=== PATIENT | male | born 1965 | race Caucasian/White ===

== ENCOUNTER 2016-08-01 07:58 | Day surgery (SDC) | payer BC ==
[~2016-08-01 07:58] MED LIST: Propofol 200 MG/20 ML SDV ONE
[2016-08-01] MEDS ORDERED: Sodium Chloride 0.9% 5 ML Syringe FLUSH PRN (08:00)
[2016-08-01] MEDS ORDERED: Sodium Chloride 0.9% 1,000 ML IV SCH (08:00)
[2016-08-01] MEDS ORDERED: Propofol 200 MG/20 ML SDV ONE (08:37)
[2016-08-01] MEDS ORDERED: Lactated Ringers 1,000 ML ONE (08:51)
[2016-08-01] MEDS ORDERED: Propofol 200 MG/20 ML SDV IV ONE (09:20)
--- NOTE | 2016-08-01 09:26 | PCM.PN ---
- General Info Date of Service: 08/01/16 - Review of Systems Systems Review Comment:: 50 y/o male referred for initial screening colonoscopy. He denies any recent bowel symptoms or family history of colon Ca. He also has a history of esophageal stricture which is becoming increasingly symptomatic. He has had esophageal dilation performed in the past with good results. Advised and patient agrees to having EGD with balloon dilation as well as colonoscopy. He understands indications and risks and he agrees to proceed. - Patient Data Vitals - most recent: Last Vital Signs Temp 97.4 F 08/01/16 08:16 Pulse 75 08/01/16 08:16 Resp 16 08/01/16 08:16 BP 131/78 08/01/16 08:16 Pulse Ox 98 08/01/16 08:16 Weight - most recent: 100.244 kg Lab Results last 24 hrs: Laboratory Results - last 24 hr 08/01/16 Range/Units 08:06 POC Glucose 205 H (74-106) mg/dl Med Orders - Current: Current Medications Sodium Chloride (Normal Saline) 1,000 mls @ 50 mls/hr IV ASDIRECTED ALIYA Sodium Chloride (Syrex Flush) 5 ml FLUSH Q8HR PRN PRN Reason: Keep Vein Open Discontinued Medications Propofol (Diprivan 20 Ml) Confirm Administered Dose 400 mg .ROUTE .STK-MED ONE Stop: 08/01/16 07:34 - Problem List Review Problem List Initiated/Reviewed/Updated: Yes - My Orders Last 24 Hours: My Active Orders 07/31/16 14:56 Resuscitation Status Routine 08/01/16 08:00 Blood Glucose Check, Bedside [RC] ONETIME Patient to Empty Bladder [RC] ASDIRECTED Peripheral IV Care [RC] . DIRECTED Verify Patient Consent Obtain [RC] ASDIRECTED Sodium Chloride 0.9% [Normal Saline] 1,000 ml IV ASDIRECTED Sodium Chloride 0.9% [Syrex Flush] 5 ml FLUSH Q8HR PRN Peripheral IV Insertion Adult [OM.PC] Routine 08/01/16 Breakfast Nothing Per Oral Diet [DIET] - Assessment Assessment:: History of Esophageal stenosis with dysphagia Colon Cancer Screening - Plan Plan:: EGD with balloon dilation and colonoscopy
--- NOTE | 2016-08-01 10:11 | PCM.OPNOTE ---
- General Post-Op/Procedure Note Date of Surgery/Procedure: 08/01/16 Operative Procedure(s): EGD with Balloon Dilation of esophageal stenosis. Colonoscopy with polyp removal Findings: [facility] with moderate stenosis Small rectal polyp Pre Op Diagnosis: Dysphagia with history of esophageal stenosis. Colon Cancer Screening Post-Op Diagnosis: Reflux esophagitis with esophageal stenosis. Rectal Polyp Anesthesia Technique: MAC Primary Surgeon: Eben Urbano Pathology: Rectal Polyp Output, Urine Amount: 0 EBL in mLs: 3 Complications: None Condition: Good
[2016-08-01 11:52] VITALS: BP 126/80
--- NOTE | 2016-08-01 18:47 | PROC ---
PROVIDER: Eben Urbano MD PRE-PROCEDURE DIAGNOSIS: Dysphagia with a history of esophageal stenosis and colon cancer screening. POST-PROCEDURE DIAGNOSIS: Reflux esophagitis with esophageal stenosis and rectal polyp. PROCEDURE PERFORMED: Esophagogastroduodenoscopy with balloon esophageal stenosis dilation and colonoscopy with polypectomy. INDICATIONS FOR SURGERY: This 50-year-old male is referred for his initial screening colonoscopy. He also notes that he has a history of increasing symptoms of dysphagia and has had successful balloon dilation of esophageal stenosis in the past and requests this as well. FINDINGS: On upper endoscopy, the patient has a moderate degree of inflammation at the GE junction. There is a mild to moderate stenosis noted at this level as well. No extra and no evidence of active extrinsic or intrinsic masses noted. The remainder of the esophagus, stomach, and duodenum appeared normal. In the patient's colon, there is a 4 mm polyp in the rectum 10 cm from the anal verge. The remainder of the colon and rectum appeared normal. PROCEDURE: The patient was taken to the operating room. He was given intravenous sedation and with him in the left lateral decubitus position, the esophagus is intubated via a mouth guard with the Olympus gastroscope. This was carefully advanced down through the esophagus, stomach, and duodenal where examination to the third portion was performed. Full examination of the visualized areas of the duodenal were carried out and then the scope was withdrawn back into the stomach where full examination including retroflexed examination of the fundus is performed. The GE junction is examined. There was some inflammation at the GE junction and a mild to moderate stenosis. With the patient's increasing symptoms, balloon dilation was felt indicated and this was then performed using a [employer] dilator to [id number]-Divehi. This was tolerated well and appeared to successfully dilate this area. A small amount of heme was achieved with this dilation. Post dilation examination showed no evidence of any complication. The scope is then withdrawn and attention was turned to colonoscopy. Digital rectal exam was performed showing no rectal masses. The Olympus colonoscope was inserted in to the rectum. Retroflexed examination of the rectal canal is performed. In the rectum, the above- described polyp was identified and this was removed in its entirety with a cold biopsy forceps. The scope was then carefully advanced under direct visualization through the entire length of the colon until the cecum was reached. Cecal acquisition is confirmed by noting the normal internal cecal anatomy including the appendiceal orifice and ileocecal valve. The light is also noted to transilluminate the abdominal wall in the right lower quadrant. After examining the cecum, the scope was slowly withdrawn sequentially re- examining the colonic segments until the entire colon and rectum had been fully examined. The scope was then removed and the patient was taken from the operating room in satisfactory condition. ESTIMATED BLOOD LOSS: 3 mL. COMPLICATIONS: None. PROGNOSIS: Good. /[id number]/MODL
== END 2016-08-01 11:35 | disposition home or self-care (01) ==
LOC: KA.SDS 07:58
PROVIDERS: ATTEND Surgery
DX: Z12.11 Encounter for screening for malignant neoplasm of colon (principal); K63.5 Polyp of colon; K21.0 Gastro-esophageal reflux disease with esophagitis; K22.2 Esophageal obstruction; E11.9 Type 2 diabetes mellitus without complications; E78.5 Hyperlipidemia, unspecified; I10 Essential (primary) hypertension; Z79.4 Long term (current) use of insulin; Z79.82 Long term (current) use of aspirin; Z79.899 Other long term (current) drug therapy; Z87.442 Personal history of urinary calculi
CPT/HCPCS: 43245; 45380; 82962; J2704; J7030

== ENCOUNTER 2018-04-07 21:40 | Emergency (ER) | payer BC ==
[2018-04-07] MEDS ORDERED: Ketorolac 30 MG/ML SDV IVPUSH ONE (22:15)
[2018-04-07] MEDS ORDERED: Sodium Chloride 0.9% 1,000 ML IV ONE (22:15)
[2018-04-07] MEDS ORDERED: Sodium Chloride 0.9% 10 ML Syringe FLUSH PRN (22:15)
--- NOTE | 2018-04-07 22:27 | EDM.PDOC ---
ED HPI GENERAL MEDICAL PROBLEM - General Chief Complaint: Flank Pain Stated Complaint: kidney stone Time Seen by Provider: 04/07/18 22:00 Source of Information: Reports: Patient History Limitations: Reports: No Limitations - History of Present Illness INITIAL COMMENTS - FREE TEXT/NARRATIVE: 52 YO WM presents to ER complaining of sudden onset right flank pain. Pt with PMH of kidney stone and states his symptoms are similar to previous episodes. Pt denies any nausea/vomiting, no dysuria, urinary frequency or urgency. Pt denies any recent injuries. Pt states he drove back from [place] today but otherwise no prolonged sitting or inactivity. Pt denies any abdominal pain or decreased appetite. Onset: Sudden Onset Date: 04/07/18 Location: Reports: Back Quality: Reports: Sharp, Stabbing Severity: Moderate Improves with: Reports: None Worsens with: Reports: None Associated Symptoms: Reports: No Other Symptoms - Related Data Allergies Allergy/AdvReac Type Severity Reaction Status Date / Time No Known Drug Allergies Allergy Other Verified 04/07/18 22:11 Home Meds: Home Meds Lisinopril [Prinivil] 40 mg PO DAILY 09/17/13 [History] glipiZIDE [Glipizide Xl] 10 mg PO DAILY 09/20/13 [History] Aspirin [Ecotrin] 81 mg PO DAILY 07/31/16 [History] Fenofibrate 160 mg PO DAILY 07/31/16 [History] Insulin Glarg,Human.Rec.Analog [LantUS Solostar] 66 units SUBCUT DAILY 07/31/16 [History] Dapagliflozin Propanediol [Farxiga] 10 mg PO DAILY 04/07/18 [History] Rosuvastatin Calcium 20 mg PO DAILY 04/07/18 [History] sitaGLIPtin Phos/Metformin HCl [Janumet Xr 50-1,000 mg Tablet] 1 tab PO BID [History] Past Medical History HEENT History: Reports: Impaired Vision Cardiovascular History: Reports: High Cholesterol, Hypertension Musculoskeletal History: Reports: Back Pain, Chronic Endocrine/Metabolic History: Reports: Diabetes, Type II - Past Surgical History Cardiovascular Surgical History: Reports: None Respiratory Surgical History: Reports: None GI Surgical History: Reports: EGD, Other (See Below) Other GI Surgeries/Procedures: pt has had esophagus surgically "stretched" Endocrine Surgical History: Reports: None Musculoskeletal Surgical History: Reports: None Social & Family History - Caffeine Use Caffeine Use: Reports: Soda ED ROS GENERAL - Review of Systems Review Of Systems: See Below Constitutional: Reports: No Symptoms HEENT: Reports: No Symptoms Respiratory: Reports: No Symptoms Cardiovascular: Reports: No Symptoms Endocrine: Reports: No Symptoms GI/Abdominal: Reports: No Symptoms : Reports: Flank Pain Musculoskeletal: Reports: No Symptoms Skin: Reports: No Symptoms Neurological: Reports: No Symptoms Psychiatric: Reports: No Symptoms Hematologic/Lymphatic: Reports: No Symptoms Immunologic: Reports: No Symptoms ED EXAM, RENAL/ - Physical Exam Exam: See Below Exam Limited By: No Limitations General Appearance: Alert, WD/WN, Mild Distress Head: Atraumatic, Normocephalic Neck: Normal Inspection, Supple, Non-Tender, Full Range of Motion Respiratory/Chest: No Respiratory Distress, Lungs Clear, Normal Breath Sounds, No Accessory Muscle Use, Chest Non-Tender Cardiovascular: Normal Peripheral Pulses, Regular Rate, Rhythm, No Edema, No Gallop, No JVD, No Murmur, No Rub GI/Abdominal: Normal Bowel Sounds, Soft, Non-Tender, No Organomegaly, No Distention, No Abnormal Bruit, No Mass Back Exam: CVA Tenderness (R) Extremities: Normal Inspection, Normal Range of Motion, Non-Tender, Normal Capillary Refill, No Pedal Edema Neurological: Alert, Oriented, CN II-XII Intact, Normal Cognition, Normal Gait, Normal Reflexes, No Motor/Sensory Deficits Psychiatric: Normal Affect, Normal Mood Skin Exam: Warm, Dry, Intact, Normal Color, No Rash Lymphatic: No Adenopathy Course - Vital Signs Last Recorded V/S: Last Vital Signs Temp 36.7 C 04/07/18 21:45 Pulse 59 L 04/07/18 21:45 Resp 18 04/07/18 21:45 BP 136/71 04/07/18 21:45 Pulse Ox 97 04/07/18 21:45 - Orders/Labs/Meds Orders: Active Orders 24 hr Category Date Time Status Peripheral IV Care [RC] . DIRECTED Care 04/07/18 22:16 Ordered Sodium Chloride 0.9% @ 999 MLS/HR (1000ml) Med 04/07/18 22:15 Ordered Sodium Chloride 0.9% [Normal Saline] 1,000 ml IV .BOLUS Sodium Chloride 0.9% [Saline Flush] Med 04/07/18 22:15 Ordered 10 ml FLUSH Q8HR PRN Peripheral IV Insertion Adult [OM.PC] Routine Oth 04/07/18 22:15 Ordered Medication Orders Sodium Chloride (Normal Saline) 1,000 mls @ 999 mls/hr IV .BOLUS ONE Stop: 04/07/18 23:15 Last Admin: 04/07/18 22:00 Dose: 999 mls/hr Sodium Chloride (Saline Flush) 10 ml FLUSH Q8HR PRN PRN Reason: keep vein open Last Admin: 04/07/18 22:00 Dose: 10 ml Labs: Laboratory Tests 04/07/18 04/07/18 04/07/18 Range/Units 22:05 22:05 22:15 WBC 9.74 (5.00-10.00) 10^3/uL RBC 5.18 (4.50-6.00) 10^6/uL Hgb 15.0 (13.0-17.0) g/dL Hct 44.4 (40.0-52.0) % MCV 85.7 (82.0-92.0) fL MCH 29.0 (27.0-31.0) pg MCHC 33.8 (32.0-36.0) g/dL RDW 13.4 (11.5-14.5) % Plt Count 243 (150-400) 10^3/uL MPV 11.1 H (7.4-10.4) fL Immature Gran % (Auto) 0.1 (0.0-5.0) % Neut % (Auto) 41.8 L (50.0-70.0) % Lymph % (Auto) 41.8 H (20.0-40.0) % [place] % (Auto) 12.5 H (2.0-8.0) % Eos % (Auto) 3.3 H (1.0-3.0) % Baso % (Auto) 0.5 (0.0-1.0) % Immature Gran # (Auto) 0.01 (0.00-0.50) 10^3/uL Neut # (Auto) 4.07 (2.50-7.00) 10^3/uL Lymph # (Auto) 4.07 H (1.00-4.00) 10^3/uL [place] # (Auto) 1.22 H (0.10-0.80) 10^3/uL Eos # (Auto) 0.32 H (0.10-0.30) 10^3/uL Baso # (Auto) 0.05 (0.00-0.10) 10^3/uL Sodium 136 (136-145) mmol/L Potassium 4.5 (3.3-5.3) mmol/L Chloride 103 (98-115) mmol/L Carbon Dioxide 25.1 (21.0-32.0) mmol/L Anion Gap 12.4 (5-15) mmol/L BUN 23 (6-25) mg/dL Creatinine 1.32 H (0.51-1.17) mg/dL Est Cr Clr Drug Dosing 66.06 mL/min Estimated GFR (MDRD) 57 mL/min Glucose 118 H (75 - 99) mg/dL Calcium 9.1 (8.7-10.3) mg/dL Specimen Type Urinvoid Urine Color Yellow (YELLOW) Urine Appearance Clear (CLEAR) Urine pH 5.0 (5.0-9.0) Ur Specific [place] 1.020 (1.005-1.030) Urine Protein Negative (NEGATIVE) mg/dL Urine Glucose (UA) >=1000 H (NEGATIVE) mg/dL Urine Ketones Negative (NEGATIVE) mg/dL Urine Occult Blood Large H (NEGATIVE) Urine Nitrite Negative (NEGATIVE) Urine Bilirubin Negative (NEGATIVE) Urine Urobilinogen 0.2 (0.2-1.0) E.U./dL Ur Leukocyte Esterase Negative (NEGATIVE) Urine RBC 75-100 H (0-5) /HPF Urine WBC 0-5 (0-5) /HPF Ur Epithelial Cells Rare /LPF Urine Bacteria Not seen (NONE TO FEW) /HPF Urine Mucus Few H (NEGATIVE) /LPF Meds: Medications Generic Name Dose Route Start Last Admin Trade Name Freq PRN Reason Stop Dose Admin Sodium Chloride 1,000 mls @ 999 mls/hr 04/07/18 22:15 04/07/18 22:00 Normal Saline IV 04/07/18 23:15 999 mls/hr .BOLUS ONE Administration Sodium Chloride 10 ml 04/07/18 22:15 04/07/18 22:00 Saline Flush FLUSH 10 ml Q8HR PRN Administration keep vein open Discontinued Medications Generic Name Dose Route Start Last Admin Trade Name Freq PRN Reason Stop Dose Admin Hydrocodone Bitart/Acetaminophen 6 tab 04/07/18 22:41 Patterson 325-10 Mg PO 04/07/18 22:42 ONETIME ONE Ketorolac Tromethamine 30 mg 04/07/18 22:15 04/07/18 22:01 Toradol IVPUSH 04/07/18 22:16 30 mg ONETIME ONE Administration - Re-Assessments/Exams Free Text/Narrative Re-Assessment/Exam: 04/07/18 22:42 pain relieved after toradol and IVF- Pt reports pain 02/28 currently and wants to go home. Pt has had CT imaging multiple times in the past. I will refrain from imaging at this time due to pain controlled and concerns for additional radiation exposure. Departure - Departure Time of Disposition: 23:05 Disposition: Home, Self-Care 01 Condition: Good Clinical Impression: Ureteric colic, Kidney stone on right side - Discharge Information Instructions: Kidney Stones, [id number], Dietary Guidelines to Help Prevent Kidney Stones Forms: ED Department Discharge Additional Instructions: 1. discharge home 2. hydrocodone 10/325 #6 Q4-6 PRN pain 3. plenty of fluids 4. return to ER for worsening symptoms 5. follow up with PCP for further evaluation and treatment - My Orders Last 24 Hours: My Active Orders 04/07/18 22:15 Sodium Chloride 0.9% @ 999 MLS/HR (1000ml) Sodium Chloride 0.9% [Normal Saline] 1,000 ml IV .BOLUS Sodium Chloride 0.9% [Saline Flush] 10 ml FLUSH Q8HR PRN Peripheral IV Insertion Adult [OM.PC] Routine 04/07/18 22:16 Peripheral IV Care [RC] . DIRECTED - Assessment/Plan Last 24 Hours: My Active Orders 04/07/18 22:15 Sodium Chloride 0.9% @ 999 MLS/HR (1000ml) Sodium Chloride 0.9% [Normal Saline] 1,000 ml IV .BOLUS Sodium Chloride 0.9% [Saline Flush] 10 ml FLUSH Q8HR PRN Peripheral IV Insertion Adult [OM.PC] Routine 04/07/18 22:16 Peripheral IV Care [RC] . DIRECTED Assessment:: 1. right sided flank pain 2. kidney stone Plan: 1. discharge home 2. hydrocodone 10/325 #6 Q4-6 PRN pain 3. plenty of fluids 4. return to ER for worsening symptoms 5. follow up with PCP for further evaluation and treatment
[2018-04-07] MEDS ORDERED: Acetaminophen/HYDROcodone 325-10 MG Tab PO ONE (22:41)
[2018-04-07 22:57] LABS: ANION GAP 12.4 mmol/L (5-15)
[2018-04-08 00:32] VITALS: BP 129/68
== END 2018-04-07 23:10 | disposition home or self-care (01) ==
LOC: KA.ED 21:40
DX: N20.2 Calculus of kidney with calculus of ureter (principal); I10 Essential (primary) hypertension; E11.9 Type 2 diabetes mellitus without complications; Z79.4 Long term (current) use of insulin; Z79.899 Other long term (current) drug therapy; Z79.82 Long term (current) use of aspirin
CPT/HCPCS: 80048; 81001; 85025; 96361; 96374; 99284; J1885; J7030

== ENCOUNTER 2018-09-12 06:50 | Emergency (ER) | payer BC ==
[2018-09-12] MEDS ORDERED: Sodium Chloride 0.9% 1,000 ML IV ONE ×2 (07:00→07:20)
[2018-09-12] MEDS ORDERED: Ondansetron 4 MG/2 ML SDV IVPUSH ONE (07:20)
[2018-09-12] MEDS ORDERED: Sodium Chloride 0.9% 10 ML Syringe FLUSH PRN (07:20)
[2018-09-12] MEDS ORDERED: HYDROmorphone 1 MG/ML Syringe IVPUSH ONE ×2 (07:26→09:11)
--- NOTE | 2018-09-12 07:26 | EDM.PDOC ---
ED HPI GENERAL MEDICAL PROBLEM - General Chief Complaint: Abdominal Pain Stated Complaint: Vomiting/Abdominal pain Time Seen by Provider: 09/12/18 07:10 Source of Information: Reports: Patient History Limitations: Reports: No Limitations - History of Present Illness INITIAL COMMENTS - FREE TEXT/NARRATIVE: 52 YO WM presents to ER complaining of generalized abdominal pain which began around 9pm last night. Pt reports feeling abdominal distention followed by nausea/vomiting which would give temporary relief. Pt reports pain began after supper last night. Pt states pain is generalized but he has more discomfort in upper abdomen. Pt denies fever/chills, no constipation/diarrhea. Pt had a bowel movement this am. Pt is currently on amoxil 500mg PO Q8 for suspected sinus infection. Onset Date: 09/11/18 Onset Time: 21:00 Location: Reports: Abdomen Quality: Reports: Ache Severity: Moderate Improves with: Reports: Other (vomiting) Worsens with: Reports: None Associated Symptoms: Reports: No Other Symptoms, Loss of Appetite, Nausea/ Vomiting Abdominal Pain Score (Numeric/FACES): 10 - Related Data Allergies Allergy/AdvReac Type Severity Reaction Status Date / Time No Known Drug Allergies Allergy Other Verified 09/12/18 07:56 Home Meds: Home Meds Lisinopril [Prinivil] 40 mg PO DAILY 09/17/13 [History] Aspirin [Ecotrin EC] 81 mg PO DAILY 07/31/16 [History] Fenofibrate 160 mg PO DAILY 07/31/16 [History] Insulin Glarg,Human.Rec.Analog [LantUS Solostar] 28 units SUBCUT DAILY 07/31/16 [History] Dapagliflozin Propanediol [Farxiga] 10 mg PO DAILY 04/07/18 [History] Rosuvastatin Calcium 40 mg PO DAILY 04/07/18 [History] sitaGLIPtin Phos/Metformin HCl [Janumet Xr 50-1,000 mg Tablet] 1 tab PO BID [History] Amoxicillin 500 mg PO TID 09/12/18 [History] Semaglutide [Ozempic] 0.5 ml SQ WEEKLY 09/12/18 [History] Past Medical History HEENT History: Reports: Impaired Vision Cardiovascular History: Reports: High Cholesterol, Hypertension Musculoskeletal History: Reports: Back Pain, Chronic Endocrine/Metabolic History: Reports: Diabetes, Type II - Past Surgical History Cardiovascular Surgical History: Reports: None Respiratory Surgical History: Reports: None GI Surgical History: Reports: EGD, Other (See Below) Other GI Surgeries/Procedures: pt has had esophagus surgically "stretched" Endocrine Surgical History: Reports: None Musculoskeletal Surgical History: Reports: None Social & Family History - Caffeine Use Caffeine Use: Reports: Soda ED ROS GENERAL - Review of Systems Review Of Systems: See Below Constitutional: Reports: No Symptoms HEENT: Reports: No Symptoms Respiratory: Reports: No Symptoms Cardiovascular: Reports: No Symptoms Endocrine: Reports: No Symptoms GI/Abdominal: Reports: Abdominal Pain, Nausea, Vomiting : Reports: No Symptoms Musculoskeletal: Reports: No Symptoms Skin: Reports: No Symptoms Neurological: Reports: No Symptoms Psychiatric: Reports: No Symptoms Hematologic/Lymphatic: Reports: No Symptoms Immunologic: Reports: No Symptoms ED EXAM, GI/ABD - Physical Exam Exam: See Below Exam Limited By: No Limitations General Appearance: Alert, WD/WN, Mild Distress Head: Atraumatic, Normocephalic Neck: Normal Inspection, Supple, Non-Tender, Full Range of Motion Respiratory/Chest: No Respiratory Distress, Lungs Clear, Normal Breath Sounds, No Accessory Muscle Use, Chest Non-Tender Cardiovascular: Normal Peripheral Pulses, Regular Rate, Rhythm, No Edema, No Gallop, No JVD, No Murmur, No Rub GI/Abdominal Exam: Soft, No Organomegaly, No Distention, No Abnormal Bruit, No Mass, Pelvis Stable, Tender, Abnormal Bowel Sounds. No: Distended, Guarding, Rigid, Rebound, Hernia, Mass, Hepatomegaly, Splenomegaly Back Exam: Normal Inspection, Full Range of Motion, NT Extremities: Normal Inspection, Normal Range of Motion, Non-Tender, Normal Capillary Refill, No Pedal Edema Neurological: Alert, Oriented, CN II-XII Intact, Normal Cognition, Normal Gait, Normal Reflexes, No Motor/Sensory Deficits Psychiatric: Normal Affect, Normal Mood Skin Exam: Warm, Dry, Intact, Normal Color, No Rash Lymphatic: No Adenopathy Course - Vital Signs Last Recorded V/S: Last Vital Signs Temp 36.3 C 09/12/18 07:10 Pulse 66 09/12/18 07:10 Resp 16 09/12/18 07:10 BP 129/63 09/12/18 07:10 Pulse Ox 94 L 09/12/18 07:10 - Orders/Labs/Meds Orders: Active Orders 24 hr Category Date Time Status Peripheral IV Care [RC] . DIRECTED Care 09/12/18 07:20 Active UA W/MICROSCOPIC [URIN] Stat Lab 09/12/18 07:20 Ordered Sodium Chloride 0.9% [Normal Saline] 1,000 ml Med 09/12/18 07:20 Active IV .BOLUS Sodium Chloride 0.9% [Normal Saline] 50 ml Med 09/12/18 07:45 Active IV ASDIRECTED Sodium Chloride 0.9% [Saline Flush] Med 09/12/18 07:20 Active 10 ml FLUSH Q8HR PRN Peripheral IV Insertion Adult [OM.PC] Routine Oth 09/12/18 07:20 Ordered Medication Orders Sodium Chloride (Normal Saline) 1,000 mls @ 999 mls/hr IV .BOLUS ONE Stop: 09/12/18 08:20 Last Admin: 09/12/18 07:44 Dose: Not Given Sodium Chloride (Normal Saline) 50 mls @ 200 mls/hr IV ASDIRECTED [facility] Last Admin: 09/12/18 08:05 Dose: 200 mls/hr Sodium Chloride (Saline Flush) 10 ml FLUSH Q8HR PRN PRN Reason: keep vein open Labs: Laboratory Tests 09/12/18 09/12/18 Range/Units 06:55 06:55 WBC 12.51 H (5.00-10.00) 10^3/uL RBC 5.72 (4.50-6.00) 10^6/uL Hgb 16.5 (13.0-17.0) g/dL Hct 46.5 (40.0-52.0) % MCV 81.3 L (82.0-92.0) fL MCH 28.8 (27.0-31.0) pg MCHC 35.5 (32.0-36.0) g/dL RDW 13.2 (11.5-14.5) % Plt Count 264 (150-400) 10^3/uL MPV 10.2 (7.4-10.4) fL Immature Gran % (Auto) 0.2 (0.0-5.0) % Neut % (Auto) 65.8 (50.0-70.0) % Lymph % (Auto) 23.3 (20.0-40.0) % [place] % (Auto) 10.2 H (2.0-8.0) % Eos % (Auto) 0.3 L (1.0-3.0) % Baso % (Auto) 0.2 (0.0-1.0) % Immature Gran # (Auto) 0.03 (0.00-0.50) 10^3/uL Neut # (Auto) 8.23 H (2.50-7.00) 10^3/uL Lymph # (Auto) 2.91 (1.00-4.00) 10^3/uL [place] # (Auto) 1.28 H (0.10-0.80) 10^3/uL Eos # (Auto) 0.04 L (0.10-0.30) 10^3/uL Baso # (Auto) 0.02 (0.00-0.10) 10^3/uL Sodium 135 L (136-145) mmol/L Potassium 3.5 (3.3-5.3) mmol/L Chloride 96 L (98-115) mmol/L Carbon Dioxide 21.3 (21.0-32.0) mmol/L Anion Gap 21.2 H (5-15) mmol/L BUN 26 H (6-25) mg/dL Creatinine 1.42 H (0.51-1.17) mg/dL Est Cr Clr Drug Dosing 63.34 mL/min Estimated GFR (MDRD) 52 mL/min Glucose 282 H (75 - 99) mg/dL Calcium 9.4 (8.7-10.3) mg/dL Total Bilirubin 2.7 H (0.2-1.0) mg/dL AST 449 H (15-37) U/L ALT 312 H (12-78) U/L Alkaline Phosphatase 128 H (46-116) IU/L Total Protein 7.8 (6.4-8.2) g/dL Albumin 3.93 (3.00-4.80) g/dL Lipase 99617 H (73-393) U/L Meds: Medications Generic Name Dose Route Start Last Admin Trade Name Freq PRN Reason Stop Dose Admin Sodium Chloride 1,000 mls @ 999 mls/hr 09/12/18 07:20 09/12/18 07:44 Normal Saline IV 09/12/18 08:20 Not Given .BOLUS ONE Sodium Chloride 50 mls @ 200 mls/hr 09/12/18 07:45 09/12/18 08:05 Normal Saline IV 200 mls/hr ASDIRECTED ALIYA Administration Sodium Chloride 10 ml 09/12/18 07:20 Saline Flush FLUSH Q8HR PRN keep vein open Discontinued Medications Generic Name Dose Route Start Last Admin Trade Name Freq PRN Reason Stop Dose Admin Hydromorphone HCl 1 mg 09/12/18 07:26 09/12/18 07:30 Dilaudid IVPUSH 09/12/18 07:27 1 mg ONETIME ONE Administration Hydromorphone HCl Confirm 09/12/18 07:29 09/12/18 07:45 Dilaudid Administered 09/12/18 07:30 Not Given Dose 1 mg .ROUTE .STK-MED ONE Sodium Chloride 1,000 mls @ 999 mls/hr 09/12/18 07:00 09/12/18 07:00 Normal Saline IV 09/12/18 08:00 999 mls/hr .BOLUS ONE Administration Iopamidol 75 ml 09/12/18 07:37 09/12/18 08:05 Isovue-370 (76%) IVPUSH 09/12/18 07:38 75 ml ONETIME ONE Administration Ondansetron HCl 4 mg 09/12/18 07:20 09/12/18 07:05 Zofran IVPUSH 09/12/18 07:21 4 mg ONETIME ONE Administration - Radiology Interpretation Free Text/Narrative:: CT abd/pelvis- uncomplicated Pancreatitis Departure - Departure Time of Disposition: 08:42 Disposition: DC/Tfer to Acute Hospital 02 Condition: Serious Clinical Impression: Pancreatitis Qualifiers: Chronicity: acute - Discharge Information Forms: ED Department Discharge, Interfacility Transfer EMTALA - My Orders Last 24 Hours: My Active Orders 09/12/18 07:20 Peripheral IV Care [RC] . DIRECTED UA W/MICROSCOPIC [URIN] Stat Sodium Chloride 0.9% [Normal Saline] 1,000 ml IV .BOLUS Sodium Chloride 0.9% [Saline Flush] 10 ml FLUSH Q8HR PRN Peripheral IV Insertion Adult [OM.PC] Routine 09/12/18 07:45 Sodium Chloride 0.9% [Normal Saline] 50 ml IV ASDIRECTED - Assessment/Plan Last 24 Hours: My Active Orders 09/12/18 07:20 Peripheral IV Care [RC] . DIRECTED UA W/MICROSCOPIC [URIN] Stat Sodium Chloride 0.9% [Normal Saline] 1,000 ml IV .BOLUS Sodium Chloride 0.9% [Saline Flush] 10 ml FLUSH Q8HR PRN Peripheral IV Insertion Adult [OM.PC] Routine 09/12/18 07:45 Sodium Chloride 0.9% [Normal Saline] 50 ml IV ASDIRECTED Assessment:: 1. acute pancreatitis Plan: 1. transfer to [facility]- Dr [place] 2. dilaudid 0.5mg IV Q30 3. zofran 4mg IV PRN vomiting 4. supportive care 5. NS @150cc/hr
[2018-09-12] MEDS ORDERED: HYDROmorphone 1 MG/ML Syringe ONE (07:29)
[2018-09-12] MEDS ORDERED: Iopamidol 755 Mg/ML 75 ML Bottle IVPUSH ONE (07:37)
[2018-09-12] MEDS ORDERED: Sodium Chloride 0.9% 50 ML IV SCH (07:45)
--- NOTE | 2018-09-12 08:09 | CT ---
[id number] CT/CT Abdomen Pelvis W IV EXAM: CT Abdomen Pelvis W IV CLINICAL DATA: PAIN. COMPARISON STUDY: CT renal stone protocol 05/31/2018. FINDINGS: Dependent atelectasis at the lung bases. Coronary artery disease. Generalized hypodensity of the liver consistent with hepatic steatosis. The spleen, gallbladder and adrenal glands are unremarkable. Punctate nonobstructing right renal calculus. Bilateral renal cysts. The kidneys are otherwise unremarkable. No hydronephrosis or hydroureter. There is peripancreatic fat stranding with loss of the normal fat lobulations. There is no fluid collection identified. No portal vein thrombosis. No evidence of splenic artery aneurysm. No bowel obstruction or inflammation. Atherosclerotic calcifications of the aorta and its branches. No lymphadenopathy, free fluid, or pneumoperitoneum. Scattered changes of spondylosis the spine. No fracture or osseous lesion. IMPRESSION: Acute uncomplicated pancreatitis. Justice Tejeda DO 09/12/18 [id number] Thank you for allowing us to participate in the care of your patient.
[2018-09-12 08:18] LABS: ANION GAP 21.2 mmol/L (5-15)
[2018-09-12 09:01] VITALS: BP 114/61; PULSE 73
== END 2018-09-12 09:20 ==
LOC: KA.ED 06:50
DX: K85.90 Acute pancreatitis without necrosis or infection, unspecified (principal); I10 Essential (primary) hypertension; E78.00 Pure hypercholesterolemia, unspecified; E11.9 Type 2 diabetes mellitus without complications; Z79.4 Long term (current) use of insulin; Z79.82 Long term (current) use of aspirin; Z79.899 Other long term (current) drug therapy
CPT/HCPCS: 36415; 74177; 80053; 83690; 85025; 96361; 96374; 96375; 96376; 99285; J1170; J2405; J7030; J7050; Q9967

== ENCOUNTER 2019-01-28 09:47 | Day surgery (SDC) | payer BC ==
[2019-01-28] MEDS: Sodium Chloride 0.9% 1,000 ML IV SCH (10:05)
[2019-01-28] MEDS: Sodium Chloride 0.9% 10 ML Syringe FLUSH PRN (10:15)
--- NOTE | 2019-01-28 11:15 | PCM.PN ---
- General Info Date of Service: 01/28/19 - Review of Systems Systems Review Comment:: 53-year-old male here for EGD with dilation. He has a history of dysphasia. He notes that EGD with dilation in 2012 helped his symptoms significantly. They have been recurring over the last 6 months. I have discussed the proposed EGD with the patient. He agrees to proceed excepting risks. His recent history and physical is reviewed. No significant changes are noted. - Patient Data Vitals - Most Recent: Last Vital Signs Temp 97.6 F 01/28/19 10:03 Pulse 66 01/28/19 10:03 Resp 18 01/28/19 10:03 BP 135/72 01/28/19 10:03 Pulse Ox 96 01/28/19 10:03 Weight - Most Recent: 95.708 kg Lab Results Last 24 Hours: Laboratory Results - last 24 hr 01/28/19 Range/Units 10:01 POC Glucose 113 H (74-106) mg/dl Med Orders - Current: Current Medications Sodium Chloride (Normal Saline) 1,000 mls @ 30 mls/hr IV ASDIRECTED ALIYA Last Admin: 01/28/19 10:05 Dose: 30 mls/hr Sodium Chloride (Saline Flush) 10 ml FLUSH Q8HR PRN PRN Reason: keep vein open Last Admin: 01/28/19 10:15 Dose: 10 ml Sepsis Event Note - Focused Exam Vital Signs: Vital Signs Temp Pulse Resp BP Pulse Ox 01/28/19 10:03 97.6 F 66 18 135/72 96 Date Exam was Performed: 01/28/19 Time Exam was Performed: 11:13 - Problem List Review Problem List Initiated/Reviewed/Updated: Yes - My Orders Last 24 Hours: My Active Orders 01/27/19 15:42 Resuscitation Status Routine 01/28/19 09:45 Blood Glucose Check, Bedside [RC] ONETIME Peripheral IV Care [RC] . DIRECTED Verify Patient Consent Obtain [RC] ASDIRECTED Vital Signs [RC] PER UNIT ROUTINE Sodium Chloride 0.9% [Normal Saline] 1,000 ml IV ASDIRECTED Sodium Chloride 0.9% [Saline Flush] 10 ml FLUSH Q8HR PRN Peripheral IV Insertion Adult [OM.PC] Routine 01/28/19 Breakfast Nothing Per Oral Diet [DIET] - Assessment Assessment:: Dysphasia with history of esophageal stricture - Plan Plan:: EGD with dilation
[2019-01-28] MEDS ORDERED: Midazolam 1 MG/ML 2 ML SDV ONE (11:18)
[2019-01-28] MEDS ORDERED: Lidocaine 2% 5 ML SDV ONE (11:19)
[2019-01-28] MEDS ORDERED: Propofol 200 MG/20 ML SDV ONE (11:19)
--- NOTE | 2019-01-28 11:58 | PCM.OPNOTE ---
- General Post-Op/Procedure Note Date of Surgery/Procedure: 01/28/19 Operative Procedure(s): EGD with balloon dilation of the esophagus Findings: Distal esophageal stricture secondary to reflux esophagitis Pre Op Diagnosis: Dysphagia with history of esophageal stricture Post-Op Diagnosis: Esophageal stricture secondary to reflux esophagitis Anesthesia Technique: MAC Primary Surgeon: Eben Urbano Pathology: none EBL in mLs: 2 Complications: None Condition: Good
--- NOTE | 2019-01-28 12:40 | OR ---
DATE OF SURGERY: 01/28/2019 SURGEON: Eben Urbano MD PREOPERATIVE DIAGNOSIS: Dysphagia in patient with history of esophageal stricture. POSTOPERATIVE DIAGNOSIS: Distal esophageal stricture secondary to reflux esophagitis. OPERATION PERFORMED: Esophagogastroduodenoscopy with balloon dilation of esophageal stricture. INDICATIONS FOR SURGERY: This 53-year-old male has a known history of esophageal strictures in the past. He is again developing dysphagia and comes for repeat upper endoscopy for possible dilation. FINDINGS: In the patient's distal esophagus in the region of his GE junction, he has a moderate stricture. There is some inflammation of the tissues seen as well consistent with acid reflux changes, although no extrinsic or intrinsic mass is noted. The remainder of the esophagus, stomach, and the proximal duodenum appears normal. DESCRIPTION OF PROCEDURE: The patient was taken to the operating room. He was given intravenous sedation and with him in the left lateral decubitus position, the gastroscope was advanced through the mouth guard into the oral cavity. Under direct visualization, the scope was carefully advanced into the upper esophagus and then advanced down through the esophagus past the GE junction and into the stomach and on into the duodenum where examination to the 3rd portion was performed. After examining the duodenum, the scope was withdrawn and full examination of the stomach including retroflex examination of the fundus was carried out. The esophageal stricture was noted at the GE junction and balloon dilation was then carried out with a 15-16.5-18 dilating balloon with dilation carried out to 54-[place]namese. The procedure did appear to grossly cause significant improvement in the stricture with a small amount of heme resulting from the dilation, but no evidence of esophageal injury noted. After examination, showed no sign of any complication. The scope was then slowly withdrawn and removed and the patient was taken from the operating room in satisfactory condition. ESTIMATED BLOOD LOSS: 2 mL. COMPLICATIONS: None. PROGNOSIS: Good. /[id number]/MODL
[2019-01-28 13:10] VITALS: BP 122/70; PULSE 60
== END 2019-01-28 13:02 | disposition home or self-care (01) ==
LOC: KA.SDS 09:47
PROVIDERS: ATTEND Surgery
DX: K22.2 Esophageal obstruction (principal); I11.0 Hypertensive heart disease with heart failure; I50.9 Heart failure, unspecified; E11.9 Type 2 diabetes mellitus without complications; E78.5 Hyperlipidemia, unspecified; I25.10 Atherosclerotic heart disease of native coronary artery without angina pectoris; Z88.8 Allergy status to other drugs, medicaments and biological substances; Z79.82 Long term (current) use of aspirin; Z79.4 Long term (current) use of insulin; Z79.899 Other long term (current) drug therapy
CPT/HCPCS: 43249; 82962; J2001; J2704; J7030

== ENCOUNTER 2022-01-24 09:23 | Day surgery (SDC) | payer OTHER ==
[2022-01-24] MEDS ORDERED: Propofol 200 MG/20 ML SDV IV ONE (09:24)
[2022-01-24] MEDS ORDERED: Sodium Chloride 0.9% 10 ML Syringe FLUSH PRN (09:30)
[2022-01-24] MEDS ORDERED: Sodium Chloride 0.9% 1,000 ML IV SCH (09:30)
[2022-01-24] MEDS ORDERED: Midazolam 1 MG/ML 2 ML SDV ONE (10:41)
[2022-01-24] MEDS ORDERED: Propofol 200 MG/20 ML SDV ONE ×2 (10:42→11:17)
[2022-01-24] MEDS ORDERED: Lidocaine 2% 5 ML SDV ONE (10:42)
[2022-01-24] MEDS ORDERED: Glycopyrrolate 0.2 MG/ML SDV ONE (10:42)
[2022-01-24 15:50] VITALS: BP 104/65; PULSE 85
== END 2022-01-24 12:35 | disposition home or self-care (01) ==
LOC: KA.SDS 09:23
PROVIDERS: ATTEND Surgery
DX: Z12.11 Encounter for screening for malignant neoplasm of colon (principal); D12.3 Benign neoplasm of transverse colon; K21.00 Gastro-esophageal reflux disease with esophagitis, without bleeding; K22.2 Esophageal obstruction; I10 Essential (primary) hypertension; G47.30 Sleep apnea, unspecified; E78.5 Hyperlipidemia, unspecified; E11.9 Type 2 diabetes mellitus without complications; Z79.899 Other long term (current) drug therapy; Z86.010 Personal history of colon polyps; Z79.82 Long term (current) use of aspirin; Z88.8 Allergy status to other drugs, medicaments and biological substances; Z98.890 Other specified postprocedural states
CPT/HCPCS: 00813; 82947; J2250; J2704; J3490; J7030

== ENCOUNTER 2024-02-16 08:50 | Emergency (ER) | payer OTHER ==
[2024-02-16] MEDS ORDERED: Aspirin 81 MG Tab.Chew PO ONE (08:56)
[2024-02-16 09:10] LABS: BASOPHILS ABSOLUTE AUTO 0.04 10^3/uL (0.00-0.10); BASOPHILS PERCENT AUTO 0.6 % (0.0-1.0); EOSINOPHILS ABSOLUTE AUTO 0.47 10^3/uL (0.10-0.30); EOSINOPHILS PERCENT AUTO 7.2 % (1.0-3.0); HEMATOCRIT 47.6 % (40.0-52.0); HEMOGLOBIN 15.9 g/dL (13.0-17.0); IMMATURE GRAN ABSOLUTE AUTO 0.01 10^3/uL (0.00-0.04); IMMATURE GRAN PERCENT AUTO 0.2 % (0.0-0.4); LYMPHOCYTES ABSOLUTE AUTO 2.57 10^3/uL (1.00-4.00); LYMPHOCYTES PERCENT AUTO 39.2 % (20.0-40.0); MEAN CORPUSCULAR HEMOGLOBIN 27.8 pg (27.0-31.0); MEAN CORPUSCULAR HGB CONC 33.4 g/dL (32.0-36.0); MEAN CORPUSCULAR VOLUME 83.4 fL (82.0-92.0); MEAN PLATELET VOLUME 9.5 fL (7.4-10.4); MONOCYTES ABSOLUTE AUTO 0.75 10^3/uL (0.10-0.80); MONOCYTES PERCENT AUTO 11.5 % (2.0-8.0); NEUTROPHILS ABSOLUTE AUTO 2.71 10^3/uL (2.50-7.00); NEUTROPHILS PERCENT AUTO 41.3 % (50.0-70.0); PLATELET COUNT,PLT 201 10^3/uL (150-400); RED BLOOD CELL COUNT 5.71 10^6/uL (4.50-6.00); WHITE BLOOD CELL COUNT,WBC 6.55 10^3/uL (5.00-10.00)
[2024-02-16 09:27] LABS: PROTHROMBIN TIME 10.5 SEC (9.3-12.2)
[2024-02-16 09:28] LABS: ALANINE AMINOTRANSFERASE,ALT 53 U/L (14-63); ALBUMIN 3.76 g/dL (3.40-5.00); ALKALINE PHOSPHATASE 84 U/L (46-116); ANION GAP 18.2 mmol/L (5-15); ASPARTATE AMNIOTRANSFERASE,AST 38 U/L (15-37); BILIRUBIN TOTAL 0.5 mg/dL (0.2-1.0); BLOOD UREA NITROGEN,BUN 19 mg/dL (7-18); CALCIUM 8.8 mg/dL (8.7-10.3); CARBON DIOXIDE,CO2 23.6 mmol/L (21.0-32.0); CHLORIDE,CL 102 mmol/L (98-107); EST CRCL DRUG DOSING (CG) 76.06 mL/min; GLUCOSE RANDOM 151 mg/dL (70-140); POTASSIUM,K 3.8 mmol/L (3.5-5.1); PROTEIN TOTAL,TP 7.3 g/dL (6.4-8.2); SODIUM,NA 140 mmol/L (136-145)
[2024-02-16 09:29] LABS: C-REACTIVE PROTEIN < 0.50 mg/dL (0.00-0.50); ESTIMATED GFR 77 mL/min (>=60)
[2024-02-16] MEDS: Alum Hydrox/Mag Hydrox/Simeth 30 ML, Lidocaine 2% 15 ML PO ONE (09:38)
[2024-02-16] MEDS: Pantoprazole 40 MG Vial IVPUSH ONE (09:45)
[2024-02-16 09:54] VITALS: BP 151/79; PULSE 75
== END 2024-02-16 11:45 | disposition home or self-care (01) ==
LOC: KA.ED 08:50
DX: K21.9 Gastro-esophageal reflux disease without esophagitis (principal); I25.10 Atherosclerotic heart disease of native coronary artery without angina pectoris; I10 Essential (primary) hypertension; E78.00 Pure hypercholesterolemia, unspecified; E11.9 Type 2 diabetes mellitus without complications; Z88.8 Allergy status to other drugs, medicaments and biological substances; Z79.4 Long term (current) use of insulin; Z79.84 Long term (current) use of oral hypoglycemic drugs; Z79.899 Other long term (current) drug therapy
CPT/HCPCS: 36415; 71045; 80053; 84484; 85025; 85610; 86140; 96374; 99285-25; A9270-GY; J2470